=== PATIENT | male | born 1945 | race Asian ===

== ENCOUNTER 2017-07-19 11:48 | Emergency (ER) | payer OTHER ==
[2017-07-19 12:06] VITALS: BMI 23.6
--- NOTE | 2017-07-19 13:11 | PDOC ---
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 Patient has had no change in appetite but son states decreased energy is noted. As per patient went question with yes and no responses he shakes his head no to pain with urination or diarrhea. Patient with no recent change in medication recent travel, or recent illness. Timing/Duration: other Severity: mild Associated Symptoms: reports: chest pain, cough, weakness Past History - Travel Traveled outside of the country in the last 30 days: No - Past Medical History Allergies/Adverse Reactions: Allergies Allergy/AdvReac Type Severity Reaction Status Date / Time No Known Allergies Allergy Verified 07/19/17 12:02 Home Medications: Ambulatory Orders Amoxicillin - [Amoxicillin 500mg Capsule -] 500 mg PO BID 07/19/17 Aspirin 81 mg PO DAILY 07/19/17 Atorvastatin Ca [Lipitor] 40 mg PO HS 07/19/17 Clarithromycin 500 mg PO BID 07/19/17 Omeprazole 20 mg PO BID 07/19/17 levETIRAcetam [Keppra -] 750 mg PO BID 07/19/17 HTN: Yes Hypercholesterolemia: Yes - Suicide/Smoking/Psychosocial Hx Smoking History: Never smoked Hx Alcohol Use: No Drug/Substance Use Hx: No Substance Use Type: None Patient Lives Alone: No Lives with/in: SON Review of Systems - Review of Systems Able to Perform ROS?: No Constitutional: Yes: Weakness HEENTM: No: Symptoms Reported, Recent change in vision Respiratory: Yes: Cough Cardiac (ROS): Yes: Chest Pain ABD/GI: Yes: Abdominal cramping (upper) : No: Symptoms Reported Musculoskeletal: No: Symptoms Reported Integumentary: No: Symptoms Reported Neurological: Yes: Weakness. No: Headache Hematologic/Lymphatic: No: Symptoms Reported *Physical Exam - Vital Signs Last Vital Signs Temp Pulse Resp BP Pulse Ox 98.8 F 94 H 19 117/62 96 07/19/17 12:02 07/19/17 12:02 07/19/17 12:02 07/19/17 12:02 07/19/17 12:02 - Physical Exam General Appearance: Yes: Nourished, Appropriately Dressed. No: Apparent Distress HEENT: negative: Pale Conjunctivae Neck: positive: Supple Respiratory/Chest: positive: Lungs Clear, Normal Breath Sounds. negative: Chest Tender, Respiratory Distress, Accessory Muscle Use Cardiovascular: positive: Regular Rhythm, Regular Rate. negative: Murmur Gastrointestinal/Abdominal: positive: Tenderness (mild epigastric). negative: Soft Extremity: positive: Normal Capillary Refill. negative: Pedal Edema Integumentary: positive: Normal Color, Warm, Moist Neurologic: positive: Motor Strength 5/5 (LEFT SIDE) Moderate Sedation - Procedure Monitoring Vital Signs: Vital Signs Temp Pulse Resp BP Pulse Ox 98.8 F 94 H 19 117/62 96 07/19/17 12:02 07/19/17 12:02 07/19/17 12:02 07/19/17 12:02 07/19/17 12:02 Heart Score/ECG Review - History History: Slightly suspicious - Electrocardiogram EKG: Normal - Age Age: >/= 65 - Risk Factors Risk Factors Heart Score: Yes Hx Hypertension Based on the list above the patient has:: 1-2 risk factors - Troponin Troponin: </= normal limit - Score Heart Score - Total: 3 - ECG Intrepretation Rhythm: Regular Rhythm (rate 92. Normal sinus rhythm. No ST elevation/ or depression) ED Treatment Course - LABORATORY CBC & Chemistry Diagram: 07/19/17 13:16 07/19/17 13:16 - RADIOLOGY Radiology Studies Ordered: Category Date Time Status CHEST X-RAY PORTABLE* [RAD] Stat Radiology 07/19/17 12:57 Ordered Medical Decision Making - Medical Decision Making 07/19/17 13:03 Patient here with subjective lower chest pain, cough and feeling fatigued. Patient has aphasia but was able to communicate with yes or no responses. Patient touches his upper abdominal region when asked where it hurt earlier today. Patient felt warm to touch and had a heart rate of 94. Patient ordered for lactic acid including cardiac profile, urine chest x-ray. 07/19/17 15:22 Laboratory Tests 07/19/17 07/19/17 07/19/17 13:16 13:16 13:16 WBC 7.6 Hgb 13.2 Hct 40.1 Neutrophils % 63.3 Sodium 143 Potassium 3.9 Chloride 112 H Carbon Dioxide 22 Anion Gap 9 BUN 16 Creatinine 0.8 Creat Clearance w eGFR > 60 Random Glucose 126 H Lactic Acid 1.8 Calcium 8.3 L Total Bilirubin 0.4 AST 9 L ALT 16 Alkaline Phosphatase 72 Creatine Kinase 32 L Troponin I < 0.02 Albumin 3.2 L Urine Protein Urine Blood Urine Nitrite Urine Bilirubin Ur Leukocyte Esterase 07/19/17 14:05 WBC Hgb Hct Neutrophils % Sodium Potassium Chloride Carbon Dioxide Anion Gap BUN Creatinine Creat Clearance w eGFR Random Glucose Lactic Acid Calcium Total Bilirubin AST ALT Alkaline Phosphatase Creatine Kinase Troponin I Albumin Urine Protein 2+ H Urine Blood 3+ H Urine Nitrite Negative Urine Bilirubin Negative Ur Leukocyte Esterase 3+ H Chest x-ray was compared to May 2010 shows no acute pathology. Based on patient's urine patient will be ordered for spiral CT and given 1 dose of IV ceftriaxone. Patient will be also ordered for 1 L fluid. 07/19/17 17:20 CT shows no evidence of acute appendicitis, diverticulitis, urolithiasis or hydronephrosis. Patient will be discharged home with antibiotics for a urinary tract infection. Urine culture sent. 07/19/17 17:26 Patient will be placed on Bactrim. Son understands if symptoms worsen despite above diagnosis to return to the ER. 07/19/17 17:28 *DC/Admit/Observation/Transfer Diagnosis at time of Disposition: UTI (urinary tract infection) - Discharge Dispostion Disposition: HOME Condition at time of disposition: Good - Referrals Referrals: Marlon Soares MD [Primary Care Provider] - - Patient Instructions Printed Discharge Instructions: DI for Urinary Tract Infection (UTI) Additional Instructions: Please begin antibiotics tomorrow since your given your first dose of antibiotics here in the ER and which is adequate coverage for 24 hours. Please also return to the ED if symptoms worsen or return. - Post Discharge Activity
[2017-07-19 13:29] LABS: BASO % 0.5 % (0-2.0); EOS % 2.5 % (0-4.5); HEMATOCRIT 40.1 % (35.4-49); HEMOGLOBIN 13.2 GM/dL (11.7-16.9); LYMPH % 25.5 % (8-40); MCH 29.5 pg (25.7-33.7); MCHC 32.9 g/dl (32.0-35.9); MEAN CELL VOLUME 89.7 fl (80-96); MEAN PLT VOLUME 7.4 fl (7.5-11.1); MONO % 8.2 % (3.8-10.2); NEUT % 63.3 % (42.8-82.8); PLATELET COUNT 335 K/MM3 (134-434); RBC 4.47 M/mm3 (4.00-5.60); RDW 14.5 % (11.9-15.9); WHITE BLOOD COUNT 7.6 K/mm3 (4.0-10.0)
--- NOTE | 2017-07-19 14:08 | PDOC ---
*Physical Exam - Vital Signs Last Vital Signs Temp Pulse Resp BP Pulse Ox 98.8 F 94 H 19 117/62 96 07/19/17 12:02 07/19/17 12:02 07/19/17 12:02 07/19/17 12:02 07/19/17 12:02 ED Treatment Course - LABORATORY CBC & Chemistry Diagram: 07/19/17 13:16 07/19/17 13:16 - ADDITIONAL ORDERS Additional order review: 07/19/17 13:16 RBC 4.47 MCV 89.7 MCHC 32.9 RDW 14.5 MPV 7.4 L Neutrophils % 63.3 Lymphocytes % 25.5 Monocytes % 8.2 Eosinophils % 2.5 Basophils % 0.5 Medical Decision Making - Medical Decision Making 07/19/17 14:08 Pt seen by the Advanced Practice Provider under my direct supervision Ancillary studies reviewed I agree with plan as outlined by the Advanced Practice Provider MART Lewis *DC/Admit/Observation/Transfer Diagnosis at time of Disposition: UTI (urinary tract infection) - Discharge Dispostion Disposition: HOME Condition at time of disposition: Good - Prescriptions Prescriptions: Sulfamethoxazole/Trimethoprim [Bactrim Ds -] 1 tab PO BID #14 tablet - Referrals Referrals: Marlon Soares MD [Primary Care Provider] - - Patient Instructions Printed Discharge Instructions: DI for Urinary Tract Infection (UTI) Additional Instructions: Please begin antibiotics tomorrow since your given your first dose of antibiotics here in the ER and which is adequate coverage for 24 hours. Please also return to the ED if symptoms worsen or return. - Post Discharge Activity
[2017-07-19 14:19] LABS: URINE APPEARANCE CLOUDY; URINE BILIRUBIN NEGATIVE (<2.0 mg/dL); URINE GLUCOSE (UA) NEGATIVE (NEGATIVE); URINE KETONE NEGATIVE (NEGATIVE); URINE NITRITE NEGATIVE (NEGATIVE)
[2017-07-19 14:22] LABS: URINE LEUK ESTERASE 3+ (NEGATIVE); URINE PROTEIN 2+ (NEGATIVE)
[2017-07-19 14:23] LABS: URINE COLOR YELLOW
[2017-07-19 14:26] LABS: CHLORIDE 112 mmol/L (98-107); POTASSIUM 3.9 mmol/L (3.5-5.1); SODIUM 143 mmol/L (136-145)
[2017-07-19 14:35] LABS: URINE MUCUS RARE
[2017-07-19 14:59] LABS: ALBUMIN 3.2 g/dl (3.4-5.0); ALK PHOS 72 U/L (45-117); ANION GAP 9 (8-16); BILIRUBIN,TOTAL 0.4 mg/dL (0.2-1.0); BLOOD UREA NITROGEN 16 mg/dL (7-18); CALCIUM 8.3 mg/dL (8.5-10.1); CO2 22 mmol/L (21-32); CREATININE 0.8 mg/dL (0.7-1.3); GLUCOSE,RANDOM 126 mg/dL (74-106); SGPT/ALT 16 U/L (12-78)
[2017-07-19 15:03] LABS: SGOT/AST 9 U/L (15-37); TOT PROT 6.6 g/dl (6.4-8.2)
[2017-07-19] MEDS ORDERED: CEFTRIAXONE 1 GM in DEXTROSE 5%-WATER - 50 ML IVPB ONE (15:16)
[2017-07-19] MEDS ORDERED: SODIUM CHLORIDE 1,000 ML IV STA (15:22)
[2017-07-19 17:34] VITALS: BP 93/60; PULSE 89; TEMP 97.8
--- NOTE | 2017-07-19 18:05 | EKG ---
Test Reason : Blood Pressure : / mmHG Vent. Rate : 092 BPM Atrial Rate : 092 BPM P-R Int : 144 ms QRS Dur : 092 ms QT Int : 358 ms P-R-T Axes : 039 -53 040 degrees QTc Int : 442 ms NORMAL SINUS RHYTHM LEFT ANTERIOR FASCICULAR BLOCK MINIMAL VOLTAGE CRITERIA FOR LVH, MAY BE NORMAL VARIANT ABNORMAL ECG NO PREVIOUS ECGS AVAILABLE Confirmed by XIN GARCIA MD ([id number]) on 07/19/2017 6:04:59 PM Referred By: Confirmed By:XIN GARCIA MD
== END 2017-07-19 17:51 | disposition home or self-care (01) ==
LOC: JER 11:48
DX: N39.0 Urinary tract infection, site not specified (principal); I10 Essential (primary) hypertension; E78.00 Pure hypercholesterolemia, unspecified; I69.820 Aphasia following other cerebrovascular disease; I69.851 Hemiplegia and hemiparesis following other cerebrovascular disease affecting right dominant side; Z79.82 Long term (current) use of aspirin
CPT/HCPCS: 36415; 71045-TC-FY; 74176; 80053; 81003; 81015; 82550; 83605; 84484; 85025; 93005; 93010; 96365; 99284-25; J7030